=== PATIENT | male | born 1945 | race Caucasian/White ===

== ENCOUNTER 2020-09-09 06:44 | Emergency (ER) | payer MEDICARE, BC ==
[~2020-09-09] VITALS: Ht 193 cm; Wt 97.5 kg
[~2020-09-09 06:44] MED LIST: ASPI325 PO; CARI350 PO; Dilaudid 2 mg Ta2 MG PO; GABA400; GABA400 PO; HYDMOR2; IBUP600 PO; LISI10; META800 PO; METF500; NAPR500 PO; NAPROXEN500 MG PO; NOVOLOG FL100 UNIT/3 SC; Prilosec Otc20 MG PO; SEMGLEE100 UNIT/1 SC; SIMV5; VALS80 PO
[2020-09-09 08:10] LABS: BASOPHILS ABSOLUTE AUTO 0.03 K/mm3 (0.00-0.23); BASOPHILS PERCENT AUTO 1 % (0-2); EOSINOPHILS ABSOLUTE AUTO 0.12 K/mm3 (0.00-0.68); EOSINOPHILS PERCENT AUTO 2 % (0-6); IMMATURE GRAN ABSOLUTE AUTO 0.16 K/mm3 (0.00-0.10); IMMATURE GRAN PERCENT AUTO 3 % (0-1); LYMPHOCYTES ABSOLUTE AUTO 1.04 K/mm3 (0.84-5.20); LYMPHOCYTES PERCENT AUTO 19 % (21-46); MONOCYTES ABSOLUTE AUTO 0.42 K/mm3 (0.16-1.47); MONOCYTES PERCENT AUTO 8 % (4-13); Mean Corpuscular HGB 28.4 pg (26.0-34.0); Mean Corpuscular HGB Conc 32.4 g/dL (31.5-36.5); Mean Corpuscular Volume 88 fL (80-100); Mean Platelet Volume 9.7 fL (9.1-12.4); NEUTROPHILS ABSOLUTE AUTO 3.59 K/mm3 (1.96-9.15); NEUTROPHILS PERCENT AUTO 67 % (41-73); Platelet Count 305 K/mm3 (150-400); RDW Coefficient Variation 12.5 % (11.7-14.2); RDW Standard Deviation 40.2 fL (35.1-46.3); Red Blood Cell Count 3.87 M/mm3 (4.30-5.90); White Blood Cell Count 5.36 K/mm3 (4.00-11.30)
[2020-09-09 08:31] LABS: Troponin I <0.015 ng/mL (0.000-0.040)
[2020-09-09 08:32] LABS: Alanine Aminotransfer (ALT/SGP 20 U/L (12-78); Albumin, Blood 2.5 g/dL (3.4-5.0); Albumin/Globulin Ratio 0.5 (0.8-1.8); Alk Phos 60 U/L (50-136); Anion Gap 5 mmol/L (6-16); Aspartate Aminotrans (AST/SGOT 22 U/L (12-37); Bilirubin, Total 0.4 mg/dL (0.1-1.0); Blood Urea Nitrogen 12 mg/dL (8-24); Bun/Creatinine Ratio 14.9 (12.0-20.0); CO2, Blood 27 mmol/L (21-32); Calcium, Blood 8.7 mg/dL (8.5-10.1); Chloride, Blood 105 mmol/L (98-108); Creatinine, Blood 0.81 mg/dL (0.60-1.20); Globulin, Blood 4.9 g/dL (2.2-4.0); Glomerular Filtration Rate >60 (60-); Glucose, Blood 115 mg/dL (70-99); Potassium, Blood 4.2 mmol/L (3.5-5.5); Sodium, Blood 137 mmol/L (136-145); Total Protein, Blood 7.4 g/dL (6.4-8.2)
== END 2020-09-09 08:49 | disposition home or self-care (01) ==
LOC: ER 06:44
PROVIDERS: Emergency Medicine
DX: U07.1 COVID-19 (principal); R06.00 Dyspnea, unspecified; E11.40 Type 2 diabetes mellitus with diabetic neuropathy, unspecified; K21.9 Gastro-esophageal reflux disease without esophagitis; E78.5 Hyperlipidemia, unspecified; Z79.4 Long term (current) use of insulin; Z88.8 Allergy status to other drugs, medicaments and biological substances; Z79.899 Other long term (current) drug therapy
CPT/HCPCS: 36415; 71045; 80053; 84484; 85025; 86140; 93005; 93010; 99284-25

== ENCOUNTER 2021-02-20 10:02 | Day surgery (SDC) | payer OTHER, MEDICARE, BC ==
[~2021-02-20] VITALS: Ht 193 cm; Wt 102.2 kg
--- NOTE | 2021-02-20 13:07 | NUR ---
TO RECOVERY ROOM VIA RECLINER. DENIES CHEST PAIN. TR BAND INTACT WITH 12 CC AIR. CIRCULATION, MOTION,SENSATION NORMAL.
[2021-02-20] MEDS ORDERED: METF500 PO (13:23)
--- NOTE | 2021-02-20 15:05 | NUR ---
2 CC AIR REMOVED FROM TR BAND. NO BLEEDING AT SITE.
--- NOTE | 2021-02-20 15:12 | NUR ---
ADDITIONAL AIR REMOVED FROM TR BAND. NO BLEEDING AT SITE.
--- NOTE | 2021-02-20 15:45 | NUR ---
AMBULATED TO BATHROOM. TOLERATED WELL. DRESSING FOR DISCHARGE
--- NOTE | 2021-02-20 16:08 | NUR ---
TR BAND REMOVED. NO BLEEDING AT SITE. CLOTH DOT AND IMMOBILIZER IN PLACE. DISCHARGE INSTRUCTIONS GIVEN WITH VERBAL AND WRITTEN UNDERSTANDING. IV REMOVED INTACT. 2X2, COBAN AND MANUAL PRESSURE APPLIED.
--- NOTE | 2021-02-20 16:18 | NUR ---
DISCHARGED HOME VIA WHEELCHAIR. SON DRIVING.
== END 2021-02-20 16:25 | disposition home or self-care (01) ==
LOC: MHTC 10:02
DX: I25.10 Atherosclerotic heart disease of native coronary artery without angina pectoris (principal); I11.0 Hypertensive heart disease with heart failure; I50.9 Heart failure, unspecified; I25.2 Old myocardial infarction; E78.5 Hyperlipidemia, unspecified; E11.9 Type 2 diabetes mellitus without complications; G47.33 Obstructive sleep apnea (adult) (pediatric); Z87.891 Personal history of nicotine dependence; Z88.8 Allergy status to other drugs, medicaments and biological substances; Z86.16 Personal history of COVID-19; Z79.4 Long term (current) use of insulin; Z79.82 Long term (current) use of aspirin
CPT/HCPCS: 76937; 93454; 99152; A9270; C1769; C1894; J2250; J2370; J3010; J7030; J7050; Q9967

== ENCOUNTER 2021-05-21 10:10 | Emergency (ER) | payer MEDICARE, BC ==
[~2021-05-21] VITALS: Ht 193 cm; Wt 104.3 kg
[~2021-05-21 10:10] MED LIST changes: +METF500 PO
[2021-05-21 11:15] LABS: BASOPHILS ABSOLUTE AUTO 0.04 K/mm3 (0.00-0.23); BASOPHILS PERCENT AUTO 1 % (0-2); EOSINOPHILS PERCENT AUTO 6 % (0-6); Hematocrit 35.5 % (37.0-53.0); Hemoglobin 11.1 g/dL (13.5-17.5); IMMATURE GRAN ABSOLUTE AUTO 0.03 K/mm3 (0.00-0.10); IMMATURE GRAN PERCENT AUTO 1 % (0-1); LYMPHOCYTES ABSOLUTE AUTO 1.07 K/mm3 (0.84-5.20); LYMPHOCYTES PERCENT AUTO 20 % (21-46); MONOCYTES ABSOLUTE AUTO 0.34 K/mm3 (0.16-1.47); MONOCYTES PERCENT AUTO 6 % (4-13); Mean Corpuscular HGB 28.2 pg (26.0-34.0); Mean Corpuscular HGB Conc 31.3 g/dL (31.5-36.5); Mean Corpuscular Volume 90 fL (80-100); Mean Platelet Volume 10.6 fL (9.1-12.4); NEUTROPHILS ABSOLUTE AUTO 3.59 K/mm3 (1.96-9.15); NEUTROPHILS PERCENT AUTO 67 % (41-73); Platelet Count 160 K/mm3 (150-400); RDW Coefficient Variation 12.9 % (11.7-14.2); RDW Standard Deviation 42.7 fL (35.1-46.3); Red Blood Cell Count 3.94 M/mm3 (4.30-5.90); White Blood Cell Count 5.37 K/mm3 (4.00-11.30)
[2021-05-21] MEDS ORDERED: Isosorbide Mono30 MG PO (11:32)
[2021-05-21] MEDS ORDERED: NAPR500 PO (11:33)
[2021-05-21] MEDS ORDERED: NITR.4SL SL (11:33)
[2021-05-21] MEDS ORDERED: POTCHL20ER PO (11:33)
[2021-05-21] MEDS ORDERED: FURO40 PO (11:33)
[2021-05-21] MEDS ORDERED: METO25 PO (11:34)
[2021-05-21] MEDS ORDERED: Percocet 5-3251 EACH PO (11:34)
[2021-05-21 11:36] LABS: Alanine Aminotransfer (ALT/SGP 22 U/L (12-78); Albumin, Blood 3.7 g/dL (3.4-5.0); Alk Phos 96 U/L (50-136); Anion Gap 4 mmol/L (6-16); Aspartate Aminotrans (AST/SGOT 15 U/L (12-37); Bilirubin, Total 0.5 mg/dL (0.1-1.0); Blood Urea Nitrogen 15 mg/dL (8-24); Bun/Creatinine Ratio 14.6 (12.0-20.0); CO2, Blood 28 mmol/L (21-32); Chloride, Blood 109 mmol/L (98-108); Creatinine, Blood 1.03 mg/dL (0.60-1.20); Globulin, Blood 3.7 g/dL (2.2-4.0); Glomerular Filtration Rate >60 (60-); Glucose, Blood 228 mg/dL (70-99); Potassium, Blood 4.3 mmol/L (3.5-5.5); Sodium, Blood 141 mmol/L (136-145); Total Protein, Blood 7.4 g/dL (6.4-8.2); Troponin I <0.015 ng/mL (0.000-0.040)
== END 2021-05-21 17:24 | disposition home or self-care (01) ==
LOC: ER 10:10
PROVIDERS: Emergency Medicine Emergency Medical Services
DX: K22.0 Achalasia of cardia (principal); M54.2 Cervicalgia; E11.40 Type 2 diabetes mellitus with diabetic neuropathy, unspecified; K21.9 Gastro-esophageal reflux disease without esophagitis; E78.5 Hyperlipidemia, unspecified; I25.2 Old myocardial infarction; I25.10 Atherosclerotic heart disease of native coronary artery without angina pectoris; Z95.1 Presence of aortocoronary bypass graft; Z88.8 Allergy status to other drugs, medicaments and biological substances; Z79.899 Other long term (current) drug therapy; Z79.4 Long term (current) use of insulin; Z79.82 Long term (current) use of aspirin
CPT/HCPCS: 36415; 71045; 71260; 80053; 83690; 83880; 84484; 85025; 85379; 93005; 93010; 99285-25; A9270; Q9967

== ENCOUNTER 2022-04-23 06:51 | Day surgery (SDC) | payer MEDICARE, BC ==
[~2022-04-23] VITALS: Ht 193 cm; Wt 103.0 kg
[~2022-04-23 06:51] MED LIST changes: +ALLEGRA ALLERG180 MG PO; +ATOR40TA PO; +Aspir 8181 MG PO; +CALCIPOTRIENE60 G1; +CELE200 PO; +Cyclobenzaprine5 MG PO; +DIOVAN HCT 80-1 EACH PO; +FLONASE ALLERG9.9 M2; +FURO40 PO; +Isosorbide Mono30 MG PO; +METO25 PO; +MUPIROCIN22 G9; +NEURONTIN300 MG PO; +NITR.4SL SL; +Norco 7.5-3251 EACH PO; +OMEP20ER PO; +POTCHL20ER PO; +Percocet 5-3251 EACH PO; +Triamcinolone A15 G3; +ZOCOR20 MG PO
[2022-04-23 07:50] LABS: CHOL/HDL RATIO 3.7; Cholesterol 180 mg/dL (50-200); HDL Cholesterol 49 mg/dL (>39); LDL/HDL RATIO 2.1; Low Density Lipoprotein Chol 104 mg/dL (0-110); Triglycerides 135 mg/dL (30-160); Very Low Density Lipoprot Chol 27 mg/dL (6-32)
--- NOTE | 2022-04-23 10:12 | NUR ---
Dr Weston here and discussed findings with .
[2022-04-23] MEDS ORDERED: CLOP75 PO ×2 (11:01→14:15)
--- NOTE | 2022-04-23 14:10 | NUR ---
DR ROQUE HERE TO SPEAK TO PATIENT AND FAMILY.
--- NOTE | 2022-04-23 14:45 | NUR ---
PATIENT AND FAMILY VERBALIZED DISCHARGE INSTRUCTIONS AND PRECAUTIONS. PATIENT UP TO REST ROOM AND SITTING AT BED SIDE. DRESSED BY SELF. RIGHT GROIN SITE REMAINS STABLE. IV SITE DCED WITH CATHETER INTACT. NO FURTHER QUAESTIONS. PATIENT TRANSFERRED TO WAITING CAR VIA WHEELCHAIR BY ALICE GROVER.
== END 2022-04-23 15:30 | disposition home or self-care (01) ==
LOC: MHTC 06:51
PROVIDERS: Internal Medicine Interventional Cardiology
DX: I25.119 Atherosclerotic heart disease of native coronary artery with unspecified angina pectoris (principal); I25.729 Atherosclerosis of autologous artery coronary artery bypass graft(s) with unspecified angina pectoris; R07.9 Chest pain, unspecified; I10 Essential (primary) hypertension; E78.2 Mixed hyperlipidemia; E11.9 Type 2 diabetes mellitus without complications; Z79.4 Long term (current) use of insulin
CPT/HCPCS: 76937; 80061; 85347; 99152; 99153; A9270; C1760; C1769; C1874; C1887; C1894; J1644; J2250; J3010; J7030; J7050; Q9967

== ENCOUNTER 2025-05-01 20:27 | Emergency (ER) | payer MEDICARE ==
[~2025-05-01] VITALS: Ht 193 cm; Wt 83.9 kg
[~2025-05-01 20:27] MED LIST changes: +CLOP75 PO; +GABA800 PO; +INSULANI; +Nitroglycerin0.4 MG SL
[2025-05-01 20:51] LABS: BASOPHILS ABSOLUTE AUTO 0.04 K/mm3 (0.00-0.23); BASOPHILS PERCENT AUTO 1 % (0-2); EOSINOPHILS ABSOLUTE AUTO 0.17 K/mm3 (0.00-0.68); EOSINOPHILS PERCENT AUTO 2 % (0-6); Hematocrit 40.7 % (37.0-53.0); Hemoglobin 13.1 g/dL (13.5-17.5); IMMATURE GRAN ABSOLUTE AUTO 0.02 K/mm3 (0.00-0.10); IMMATURE GRAN PERCENT AUTO 0 % (0-1); LYMPHOCYTES ABSOLUTE AUTO 1.31 K/mm3 (0.84-5.20); LYMPHOCYTES PERCENT AUTO 16 % (21-46); MONOCYTES ABSOLUTE AUTO 0.48 K/mm3 (0.16-1.47); MONOCYTES PERCENT AUTO 6 % (4-13); Mean Corpuscular HGB Conc 32.2 g/dL (31.5-36.5); Mean Corpuscular Volume 87 fL (80-100); NEUTROPHILS ABSOLUTE AUTO 6.25 K/mm3 (1.96-9.15); NEUTROPHILS PERCENT AUTO 76 % (41-73); NRBC ABSOLUTE 0.00 K/mm3 (0.00-0.02); NRBC Auto 0.0 /100 WBC (0.0-0.2); Platelet Count 153 K/mm3 (150-400); RDW Coefficient Variation 13.2 % (11.7-14.2); RDW Standard Deviation 42.5 fL (35.1-46.3)
[2025-05-01 21:19] LABS: Alanine Aminotransfer (ALT/SGP 19.0 U/L (12-78); Albumin, Blood 3.8 g/dL (3.4-5.0); Albumin/Globulin Ratio 1.0 (0.8-1.8); Anion Gap 10.0 mmol/L (3-11); Aspartate Aminotrans (AST/SGOT 23.0 U/L (12-37); Bilirubin, Total 0.6 mg/dL (0.1-1.0); Blood Urea Nitrogen 24.0 mg/dL (8-24); CO2, Blood 22.0 mmol/L (21-32); Calcium, Blood 8.4 mg/dL (8.5-10.1); Chloride, Blood 105.0 mmol/L (98-108); Creatinine, Blood 0.95 mg/dL (0.60-1.20); Globulin, Blood 3.9 g/dL (2.2-4.0); Glucose, Blood 360.0 mg/dL (70-99); Potassium, Blood 4.3 mmol/L (3.5-5.5); Sodium, Blood 133.0 mmol/L (136-145); Total Protein, Blood 7.7 g/dL (6.4-8.2)
[2025-05-01] MEDS ORDERED: CALCIPOTRIENE60 G3 TOP (22:58)
[2025-05-01] MEDS ORDERED: Nitrostat0.4 MG SL (23:06)
[2025-05-01 23:15] VITALS: BP 146/78
== END 2025-05-01 23:23 | disposition home or self-care (01) ==
LOC: ER 20:27
PROVIDERS: Emergency Medicine
DX: K22.4 Dyskinesia of esophagus (principal); E11.40 Type 2 diabetes mellitus with diabetic neuropathy, unspecified; K21.9 Gastro-esophageal reflux disease without esophagitis; E78.5 Hyperlipidemia, unspecified; I25.2 Old myocardial infarction; Z98.890 Other specified postprocedural states; Z98.1 Arthrodesis status; Z88.8 Allergy status to other drugs, medicaments and biological substances; Z79.4 Long term (current) use of insulin; Z79.84 Long term (current) use of oral hypoglycemic drugs; Z79.82 Long term (current) use of aspirin; Z79.899 Other long term (current) drug therapy
CPT/HCPCS: 71046; 80053; 84484; 85025; 93005; 93010; 99284-25; A9270